=== PATIENT | female | born 2000 | race Two or more races ===

== ENCOUNTER 2021-07-13 19:29 | Emergency (ER) | payer OTHER ==
[~2021-07-13] VITALS: Ht 167.6 cm; Wt 77.1 kg
[2021-07-13 22:30] VITALS: BP 136/72
== END 2021-07-13 23:11 | disposition home or self-care (01) ==
LOC: EDBD 19:29 → ER 19:34
DX: S01.512A Laceration without foreign body of oral cavity, initial encounter (principal); S51.811A Laceration without foreign body of right forearm, initial encounter; S60.511A Abrasion of right hand, initial encounter; R07.89 Other chest pain; V49.49XA Driver injured in collision with other motor vehicles in traffic accident, initial encounter; Y93.89 Activity, other specified; Y92.488 Other paved roadways as the place of occurrence of the external cause; Y99.8 Other external cause status
CPT/HCPCS: 71250; 93005